=== PATIENT | female | born 1995 | race Caucasian/White ===

== ENCOUNTER → 2022-12-21 07:49 | Outpatient (CLI) | payer OTHER, MEDICAID, SELFPAY ==
--- NOTE | 2022-12-21 19:48 | DI.NM.S_ITS ---
DATE OF SERVICE: 12/21/2022 PROCEDURE: Exercise stress test. INDICATIONS: Palpitation, dyspnea on exertion, history of POTS. CARDIAC STRESS: Patient underwent exercise stress test under the supervision of an attending staff. She walked on Juan protocol for 9 minutes and 25 seconds, achieved maximum heart rate of 174, which was 90% of target heart rate. Normal blood pressure response. Resting blood pressure 96/80 and peak blood pressure 128/66 mmHg. Achieved 10.1 METS of workload. JUSTICE positive 7%. Baseline rhythm was sinus. During stress, no convincing ischemic changes seen. Rare PVCs without any complex arrhythmias. At around 6 minutes into the exercise, patient felt chest pressure which did not increase with exercise. Oxygen saturation was 98% to 99%. There was enhanced chronotropic response. However, recovery was normal. CONCLUSION: Exercise stress test is negative for inducible ischemia. Achieved 10.1 METS of workload. Walked on Juan protocol for 9 minutes and 25 seconds. Normal blood pressure response. Enhanced chronotropic response. Chest pressure at around 6 minutes into the exercise without any worsening with further activity. No ischemic electrocardiographic changes or significant arrhythmias at that time. Overall rare PVCs. This exercise test is a low-risk exercise stress test. Lakeisha Ngo - ANGELIC/diana/ doc#: [id number]/job#: [id number] dd: 12/21/2022 16:41:00 dt: 12/21/2022 19:38:00 DICTATING /COPIES TO: Karina Le MD COPIES MNE: ADELITA;
== END ==
PROVIDERS: PCP Physician Assistant Medical; Referring Provider Student in an Organized Health Care Education/Training Program; Visit Provider Student in an Organized Health Care Education/Training Program
DX: G90.A Postural orthostatic tachycardia syndrome [POTS] (principal); R00.2 Palpitations; R06.09 Other forms of dyspnea; I49.3 Ventricular premature depolarization
CPT/HCPCS: 93017